=== PATIENT | male | born 1930 | race Caucasian/White ===

== ENCOUNTER → 2016-10-20 | Outpatient (CLI) | payer OTHER ==
[~2016-10-20] MED LIST: ACET-1600 PO; ACET-76 PO; ASCO100072 PO; HYDR25TA6 PO; IRON15TA3 PO; LOSA25TA5 PO; LOSA50TA6 PO; LOVA40TA2 PO; MELO15TA6 PO; MV,M1TAB PO; NAPR220C2 PO
== END | disposition home or self-care (01) ==
LOC: CFH 10:00
PROVIDERS: ATTEND Physical Medicine & Rehabilitation
DX: M48.06 Spinal stenosis, lumbar region (principal); M48.07 Spinal stenosis, lumbosacral region; M47.897 Other spondylosis, lumbosacral region; M12.88 Other specific arthropathies, not elsewhere classified, other specified site; M51.25 Other intervertebral disc displacement, thoracolumbar region; M79.604 Pain in right leg
CPT/HCPCS: 72148

== ENCOUNTER → 2017-02-05 | Outpatient (CLI) | payer OTHER ==
[~2017-02-05] MED LIST changes: +BETA15CR4 TP; +IRON PO; +MINE50OI TP; +TRAM50TA2 PO
[2017-02-05 12:10] LABS: BLOOD UREA NITROGEN 22 mg/dL (7-18)
[2017-02-05 12:13] LABS: ASPARTATE AMINO TRANSFERASE 25 U/L (15-37)
== END | disposition home or self-care (01) ==
LOC: STAR 10:33
PROVIDERS: ATTEND Neurological Surgery
DX: Z01.818 Encounter for other preprocedural examination (principal); M47.896 Other spondylosis, lumbar region; M43.16 Spondylolisthesis, lumbar region; M48.07 Spinal stenosis, lumbosacral region; I70.0 Atherosclerosis of aorta; R79.1 Abnormal coagulation profile
CPT/HCPCS: 36415; 71020; 72110; 80053; 81003; 85025; 85610; 85730; 93005

== ENCOUNTER → 2017-12-23 | Outpatient (CLI) | payer OTHER ==
[~2017-12-23] MED LIST changes: +HYDR-3240 PO; +TIZA2TAB PO
== END | disposition home or self-care (01) ==
LOC: CFH 08:56
PROVIDERS: ATTEND Registered Nurse Registered Nurse First Assistant
DX: M51.36 Other intervertebral disc degeneration, lumbar region (principal); M48.061 Spinal stenosis, lumbar region without neurogenic claudication; M41.9 Scoliosis, unspecified
CPT/HCPCS: 72110; 72148

== ENCOUNTER 2018-03-27 11:43 | Inpatient (IN) | payer OTHER ==
[~2018-03-27] VITALS: Ht 170.2 cm; Wt 78.9 kg
[~2018-03-27 11:43] MED LIST changes: -LOSA25TA5 PO; +LOSA25TA6 PO; -LOSA50TA6 PO; +LOSA50TA7 PO
[2018-03-27] MEDS ORDERED: NAPR220C2 PO (12:36)
[2018-03-27] MEDS ORDERED: ACET-1600 PO (12:36)
[2018-03-27] MEDS ORDERED: MELO15TA24 PO (12:36)
[2018-03-27 12:43] LABS: BASOPHILS # (AUTO) 0.05 x10^3/uL (0-0.1); BASOPHILS % (AUTO) 0 % (0-1); EOSINOPHILS % (AUTO) 1 % (1-7); LYMPHOCYTES # (AUTO) 0.61 x10^3/uL (1-3.4); LYMPHOCYTES % (AUTO) 5 % (22-44); MD NO; MEAN CORPUSCULAR HEMOGLOBIN 32.1 pg (27.5-34.5); MEAN CORPUSCULAR HGB CONC 33.2 g/dL (33.2-36.2); MEAN CORPUSCULAR VOLUME 96.8 fL (81-97); MEAN PLATELET VOLUME 7.8 fL (7.4-10.4); MONOCYTES # (AUTO) 0.83 x10^3/uL (0.2-0.8); MONOCYTES % (AUTO) 7 % (2-9); NEUTROPHILS # (AUTO) 10.67 x10^3/uL (1.8-6.8); NEUTROPHILS % (AUTO) 87 % (42-75); PLATELET COUNT 325 x10^3/uL (130-400); RED CELL DISTRIBUTION WIDTH 14.1 % (9.4-14.8)
[2018-03-27 12:44] LABS: MICROSCOPIC NOT IND
[2018-03-27 12:52] LABS: CULTURE INDICATED? NO
[2018-03-27 12:53] LABS: INTERNATIONAL NORMALIZED RATIO 1.09 (0.93-1.1); PROTHROMBIN TIME 11.2 Seconds (9.6-11.5)
[2018-03-27 12:57] LABS: ALANINE AMINOTRANSFERASE 18 U/L (12-78); ALBUMIN 3.6 g/dL (3.4-5.0); ANION GAP 9 mmol/L (5-15); CALCIUM 8.2 mg/dL (8.5-10.1); CHLORIDE 109 mmol/L (98-107); CREATININE 1.04 mg/dL (0.7-1.3)
[2018-03-27 13:02] LABS: ALKALINE PHOSPHATASE 43 U/L (45-117); BILIRUBIN,TOTAL 0.3 mg/dL (0.2-1.0); TOTAL PROTEIN 6.5 g/dL (6.4-8.2)
[2018-03-27 13:03] LABS: TROPONIN I < 0.015 ng/mL (0.000-0.045)
[2018-03-27] MEDS ORDERED: SODIUM CHLORIDE 0.9%, 500ML IVBOLUS ONE (13:30)
[2018-03-27] MEDS ORDERED: PANTOPRAZOLE 40 MG IV ONE (13:46)
[2018-03-27] MEDS: PANTOPRAZOLE 40 MG IV IVPush SCH ×3 (13:50→16:37)
[2018-03-27] MEDS ORDERED: BISACODYL 10 MG SUPP PR PRN (14:30)
[2018-03-27] MEDS ORDERED: morphine SULFATE 10 MG/ML, 1ML IVPush PRN (14:30)
[2018-03-27] MEDS ORDERED: HYDROcodone/APAP 5/325 TABLET PO PRN (14:30)
[2018-03-27] MEDS ORDERED: LIDODERM 5% PATCH TD PRN (14:30)
[2018-03-27] MEDS ORDERED: ENALAPRILAT 1.25 MG/ML, 2ML IVPush PRN (14:30)
[2018-03-27] MEDS ORDERED: METHOCARBAMOL 500 MG TABLET PO PRN (14:30)
[2018-03-27] MEDS ORDERED: POLYETHYLENE GLYCOL 17 GM PACKET PO PRN (14:30)
[2018-03-27] MEDS ORDERED: ONDANSETRON ODT 4 MG PO PRN (14:30)
[2018-03-27] MEDS ORDERED: DOCUSATE 100 MG CAPSULE PO PRN (14:30)
[2018-03-27] MEDS ORDERED: ONDANSETRON 2MG/ML, 2ML IVPush PRN (14:30)
[2018-03-27 15:14] VITALS: BP 118/69
[2018-03-27] MEDS: ACETAMINOPHEN 500 MG TABLET PO SCH ×2 (16:36→20:42)
[2018-03-27] MEDS: SODIUM CHLORIDE 0.9% 1,000 ML IV SCH (16:37)
[2018-03-27 19:21] VITALS: BP 130/79
[2018-03-28] MEDS: SODIUM CHLORIDE 0.9% 1,000 ML IV SCH ×2 (00:01→10:46)
[2018-03-28 01:12] VITALS: BP 126/63
[2018-03-28] MEDS: PANTOPRAZOLE 40 MG IV IVPush SCH (02:34)
[2018-03-28 07:12] LABS: BASOPHILS # (AUTO) 0.03 x10^3/uL (0-0.1); BASOPHILS % (AUTO) 0 % (0-1); EOSINOPHILS # (AUTO) 0.12 x10^3/uL (0-0.4); EOSINOPHILS % (AUTO) 2 % (1-7); LYMPHOCYTES # (AUTO) 2.37 x10^3/uL (1-3.4); LYMPHOCYTES % (AUTO) 29 % (22-44); MD NO; MEAN CORPUSCULAR HEMOGLOBIN 32.4 pg (27.5-34.5); MEAN CORPUSCULAR HGB CONC 33.7 g/dL (33.2-36.2); MEAN CORPUSCULAR VOLUME 96.2 fL (81-97); MEAN PLATELET VOLUME 7.1 fL (7.4-10.4); MONOCYTES # (AUTO) 0.73 x10^3/uL (0.2-0.8); MONOCYTES % (AUTO) 9 % (2-9); NEUTROPHILS # (AUTO) 4.94 x10^3/uL (1.8-6.8); NEUTROPHILS % (AUTO) 60 % (42-75); PLATELET COUNT 266 x10^3/uL (130-400); RED BLOOD COUNT 2.51 x10^6/uL (4.38-5.82); RED CELL DISTRIBUTION WIDTH 14.5 % (9.4-14.8)
[2018-03-28 07:21] LABS: ALANINE AMINOTRANSFERASE 19 U/L (12-78); ALBUMIN 3.3 g/dL (3.4-5.0); ANION GAP 6 mmol/L (5-15); CALCIUM 8.1 mg/dL (8.5-10.1); CHLORIDE 114 mmol/L (98-107); CREATININE 1.11 mg/dL (0.7-1.3)
[2018-03-28 07:23] LABS: ALKALINE PHOSPHATASE 37 U/L (45-117); BILIRUBIN,TOTAL 0.4 mg/dL (0.2-1.0)
[2018-03-28 07:40] VITALS: BP 144/71
[2018-03-28] MEDS ORDERED: PROPOFOL 10 MG/ML, 20ML ONE (08:50)
[2018-03-28] MEDS ORDERED: LOVASTATIN 40 MG TABLET PO SCH (09:00)
[2018-03-28] MEDS ORDERED: FERROUS SULFATE 325 MG TABLET PO SCH (09:00)
[2018-03-28] MEDS ORDERED: ASCORBIC ACID 500 MG TABLET PO SCH (09:00)
[2018-03-28] MEDS ORDERED: ACETAMINOPHEN 325 MG TABLET PO PRN (09:30)
[2018-03-28] MEDS ORDERED: ONDANSETRON ODT 8 MG PO PRN (09:30)
[2018-03-28 09:56] VITALS: BP 109/63
[2018-03-28] MEDS: ACETAMINOPHEN 500 MG TABLET PO SCH (10:46)
[2018-03-28] MEDS ORDERED: SUCRALFATE 1 GM/10 ML UDC PO SCH (11:00)
[2018-03-28 13:35] VITALS: BP 130/69
[2018-03-28] MEDS ORDERED: OMEP40CA6 PO (13:53)
[2018-03-28] MEDS ORDERED: SUCR1ORA5 PO (13:53)
[2018-03-28] MEDS ORDERED: LACT1CAP24 PO (13:53)
== END 2018-03-28 16:25 | disposition home or self-care (01) | DRG 378 ==
LOC: ED 13:37 → EDIP 13:38 → ED 13:40 → 4EST 15:03
PROVIDERS: ADMIT Hospitalist; ATTEND Hospitalist
PROC: 0DB78ZX Excision of Stomach, Pylorus, Via Natural or Artificial Opening Endoscopic, Diagnostic (ICD-10-PCS; principal; 2018-03-28 09:00)
DX: K26.4 Chronic or unspecified duodenal ulcer with hemorrhage (principal); D62 Acute posthemorrhagic anemia; D72.829 Elevated white blood cell count, unspecified; E78.00 Pure hypercholesterolemia, unspecified; G47.33 Obstructive sleep apnea (adult) (pediatric); Z96.649 Presence of unspecified artificial hip joint; G89.29 Other chronic pain; I10 Essential (primary) hypertension; I45.10 Unspecified right bundle-branch block; N19 Unspecified kidney failure; Z85.828 Personal history of other malignant neoplasm of skin
CPT/HCPCS: 36415; 71045; 80053; 81003; 83690; 83880; 84484; 85014; 85018; 85025; 85610; 85730; 88305; 93005; 99285; G0378; J2704; C9113; J7030; J7040

== ENCOUNTER → 2018-08-13 | Outpatient (CLI) | payer MEDICARE ==
[~2018-08-13] MED LIST changes: +LACT1CAP24 PO; +LOSA25TA25 PO; -LOSA25TA6 PO; +MELO15TA24 PO; +OMEP40CA6 PO; +SUCR1ORA5 PO
== END | disposition home or self-care (01) ==
LOC: CFH 13:26
PROVIDERS: ATTEND Registered Nurse
DX: I25.10 Atherosclerotic heart disease of native coronary artery without angina pectoris (principal); G47.34 Idiopathic sleep related nonobstructive alveolar hypoventilation
CPT/HCPCS: 71250

== ENCOUNTER 2018-10-15 08:55 | Emergency (ER) | payer MEDICARE, OTHER ==
[~2018-10-15] VITALS: Ht 167.6 cm; Wt 82.0 kg
[~2018-10-15 08:55] MED LIST changes: +LOSA50TA14 PO; -LOSA50TA7 PO
--- NOTE | 2018-10-15 09:29 | NUR ---
PT AMBULATORY TO ROOM 16 W/ C/O MID BACK PAIN STARTED AFTER PT HAD MGL THURSDAY. PT STATES HE AWOKE THURSDAY W/ PAIN THAT IS GETTING WORSE. DENIES HEAD INJURY/LOC. PT SITTING AT [facility]. [facility] [place].
[2018-10-15] MEDS ORDERED: HYDROcodone/APAP 5/325 TABLET ONE (09:45)
--- NOTE | 2018-10-15 09:49 | NUR ---
REPORT RECEIVED FROM KRISTIE WU. ASSUMED CARE OF PT. PT CURRENTLY IN RADIOLOGY.
--- NOTE | 2018-10-15 09:52 | NUR ---
KRISTIE RN: REPORT TO TRISHA BARAJAS.
[2018-10-15] MEDS ORDERED: HYDROcodone/APAP 5/325 TABLET PO ONE (10:00)
--- NOTE | 2018-10-15 10:48 | NUR ---
PT PROVIDED WITH IS, INSTRUCTED ON USE. PT ABLE TO RAISE PISTON TO 1500. NO NEEDS EXPRESSED AT THIS TIME.
--- NOTE | 2018-10-15 11:29 | NUR ---
REPORT TO TRISHA BARAJAS.
[2018-10-15 12:01] VITALS: BP 120/58
== END 2018-10-15 12:04 | disposition home or self-care (01) ==
LOC: ED 11:05
DX: S29.011A Strain of muscle and tendon of front wall of thorax, initial encounter (principal); W01.0XXA Fall on same level from slipping, tripping and stumbling without subsequent striking against object, initial encounter; Y93.89 Activity, other specified; Y92.89 Other specified places as the place of occurrence of the external cause; Y99.9 Unspecified external cause status
CPT/HCPCS: 99283

== ENCOUNTER → 2018-11-11 | Outpatient (CLI) | payer MEDICARE, OTHER ==
[~2018-11-11] MED LIST changes: +REGADENOSON 0.4 MG/5 ML SYRINGE ONE
== END | disposition home or self-care (01) ==
LOC: CFH 08:03
PROVIDERS: ATTEND Internal Medicine Cardiovascular Disease
DX: R06.02 Shortness of breath (principal); I10 Essential (primary) hypertension
CPT/HCPCS: 78452; 93017; A9502; J2785

== ENCOUNTER 2019-02-11 11:32 | Emergency (ER) | payer MEDICARE ==
[~2019-02-11] VITALS: Ht 170.2 cm; Wt 80.0 kg
[~2019-02-11 11:32] MED LIST changes: -REGADENOSON 0.4 MG/5 ML SYRINGE ONE
[2019-02-11] MEDS ORDERED: ASPIRIN 81 MG TABLET CHEW PO ONE (12:00)
[2019-02-11 12:06] LABS: BASOPHILS # (AUTO) 0.02 x10^3/uL (0-0.1); BASOPHILS % (AUTO) 0 % (0-1); EOSINOPHILS # (AUTO) 0.13 x10^3/uL (0-0.4); EOSINOPHILS % (AUTO) 2 % (1-7); LYMPHOCYTES # (AUTO) 0.76 x10^3/uL (1-3.4); LYMPHOCYTES % (AUTO) 13 % (22-44); MD NO; MEAN CORPUSCULAR HEMOGLOBIN 32.8 pg (27.5-34.5); MEAN CORPUSCULAR HGB CONC 32.6 g/dL (33.2-36.2); MEAN CORPUSCULAR VOLUME 100.6 fL (81-97); MEAN PLATELET VOLUME 7.1 fL (7.4-10.4); MONOCYTES # (AUTO) 0.89 x10^3/uL (0.2-0.8); MONOCYTES % (AUTO) 15 % (2-9); NEUTROPHILS # (AUTO) 4.14 x10^3/uL (1.8-6.8); NEUTROPHILS % (AUTO) 70 % (42-75); PLATELET COUNT 263 x10^3/uL (130-400); RED BLOOD COUNT 4.11 x10^6/uL (4.38-5.82); RED CELL DISTRIBUTION WIDTH 14.2 % (9.4-14.8)
[2019-02-11] MEDS ORDERED: ASPIRIN 81 MG TABLET CHEW ONE (12:07)
[2019-02-11 12:20] LABS: ALBUMIN 3.9 g/dL (3.4-5.0); ANION GAP 8 mmol/L (5-15); CALCIUM 8.9 mg/dL (8.5-10.1); CHLORIDE 112 mmol/L (98-107)
[2019-02-11 12:25] LABS: CREATININE 1.16 mg/dL (0.7-1.3); TROPONIN I < 0.015 ng/mL (0.000-0.045)
[2019-02-11] MEDS ORDERED: APIXABAN 5 MG TABLET PO ONE (13:30)
[2019-02-11] MEDS ORDERED: APIXABAN 5 MG TABLET ONE (13:33)
[2019-02-11 14:03] VITALS: BP 142/64
== END 2019-02-11 14:05 | disposition home or self-care (01) ==
LOC: ED 12:47
DX: I48.0 Paroxysmal atrial fibrillation (principal); M19.90 Unspecified osteoarthritis, unspecified site; G89.29 Other chronic pain; M54.9 Dorsalgia, unspecified; I10 Essential (primary) hypertension; E78.00 Pure hypercholesterolemia, unspecified; Z96.649 Presence of unspecified artificial hip joint
CPT/HCPCS: 36415; 71046; 80048; 82040; 83880; 84484; 85025; 93005; 99284

== ENCOUNTER 2019-03-08 11:03 | Outpatient (CLI) | payer MEDICARE | END 2019-03-08 23:59 | disposition home or self-care (01) | LOC: CFH 11:03 | PROVIDERS: ATTEND Registered Nurse | DX: R91.8 Other nonspecific abnormal finding of lung field (principal); M95.4 Acquired deformity of chest and rib; G47.34 Idiopathic sleep related nonobstructive alveolar hypoventilation; Z98.890 Other specified postprocedural states | CPT/HCPCS: 71250 ==

== ENCOUNTER 2020-03-23 10:55 | Emergency (ER) | payer MEDICARE ==
[~2020-03-23] VITALS: Ht 167.6 cm; Wt 82.0 kg
[~2020-03-23 10:55] MED LIST changes: +OMEP40CA42 PO; -OMEP40CA6 PO; -TIZA2TAB PO; +TIZA2TAB4 PO
--- NOTE | 2020-03-23 11:02 | NUR ---
89 Y/O MALE BIB AMBULANCE WITH C/O FLUTTERING FEELING IN HEART. PER PT "ABOUT 0430, I HAVE AFIB, AND IT KICKED IN FOR ABOUT 4 SECONDS. IT HAPPENED ABOUT 4 MONTHS AGO. SINCE I WOKE UP AFTER THAT, I HAVE BEEN MELQUIADES FEELING LETHARGIC AND THOUGHT I SHOULD GET IT CHECKED OUT." NADN. NO C/O CP, N/V/D, TRAUMA, SYNCOPE, SOB. PT PLACED ON CONT PULSE OX,NIBP, [employer] [place].
--- NOTE | 2020-03-23 11:05 | NUR ---
PT STATES HE TOOK 325 OF ASPIRIN TODAY. PER REPORT PT HAS PIV IN RIGHT WRIST, FSBS 109
[2020-03-23] MEDS ORDERED: CYAN100072 PO (11:10)
[2020-03-23] MEDS ORDERED: APIX2.5T PO (11:10)
[2020-03-23] MEDS ORDERED: GABA100C PO (11:10)
[2020-03-23] MEDS ORDERED: CHOL10003 PO (11:10)
--- NOTE | 2020-03-23 11:13 | NUR ---
EDMD BEDSIDE. NOW BEDSIDE.
[2020-03-23 11:53] LABS: BASOPHILS # (AUTO) 0.03 x10^3/uL (0-0.1); BASOPHILS % (AUTO) 1 % (0-1); EOSINOPHILS # (AUTO) 0.09 x10^3/uL (0-0.4); EOSINOPHILS % (AUTO) 2 % (1-7); LYMPHOCYTES # (AUTO) 0.88 x10^3/uL (1-3.4); LYMPHOCYTES % (AUTO) 15 % (22-44); MD NO; MEAN CORPUSCULAR HEMOGLOBIN 33.8 pg (27.5-34.5); MEAN CORPUSCULAR HGB CONC 32.8 g/dL (33.2-36.2); MEAN PLATELET VOLUME 7.4 fL (7.4-10.4); MONOCYTES # (AUTO) 0.58 x10^3/uL (0.2-0.8); MONOCYTES % (AUTO) 10 % (2-9); NEUTROPHILS # (AUTO) 4.29 x10^3/uL (1.8-6.8); NEUTROPHILS % (AUTO) 73 % (42-75); PLATELET COUNT 234 x10^3/uL (130-400); RED BLOOD COUNT 3.95 x10^6/uL (4.38-5.82); RED CELL DISTRIBUTION WIDTH 14.2 % (9.4-14.8)
[2020-03-23 12:07] LABS: ANION GAP 9 mmol/L (5-15); CALCIUM 9.1 mg/dL (8.5-10.1); CHLORIDE 109 mmol/L (98-107); CREATININE 1.22 mg/dL (0.7-1.3)
[2020-03-23 12:12] LABS: TROPONIN I < 0.015 ng/mL (0.000-0.045)
--- NOTE | 2020-03-23 12:13 | NUR ---
Report from Corazon. Pt resting, spouse at bedside. Pt without complaint, states feeling "good". Updated on POC.
--- NOTE | 2020-03-23 12:38 | NUR ---
Pt assisted to restroom. Ambulates without issue.
[2020-03-23 13:26] VITALS: BP 155/90
== END 2020-03-23 13:38 | disposition home or self-care (01) ==
LOC: ED 11:44
DX: R00.2 Palpitations (principal); I10 Essential (primary) hypertension; I48.91 Unspecified atrial fibrillation; I45.10 Unspecified right bundle-branch block; R07.89 Other chest pain
CPT/HCPCS: 36415; 71045; 80048; 82040; 84484; 85025; 93005; 99285

== ENCOUNTER 2020-04-11 06:20 | Emergency (ER) | payer MEDICARE ==
[~2020-04-11] VITALS: Ht 167.6 cm; Wt 82.0 kg
[~2020-04-11 06:20] MED LIST changes: +APIX2.5T PO; +CHOL10003 PO; +CYAN100072 PO; +GABA100C PO
[2020-04-11] MEDS ORDERED: METOPROLOL SUCCINATE 25 MG TAB.ER.24H PO ONE (06:30)
--- NOTE | 2020-04-11 06:36 | NUR ---
PT HAS HAD ON AND OFF PALPATIONS FOR 7 MONTHS NOW THAT COME AND GO. PT HAS HX OF A-FIB
[2020-04-11 06:52] LABS: BASOPHILS # (AUTO) 0.01 x10^3/uL (0-0.1); BASOPHILS % (AUTO) 0 % (0-1); EOSINOPHILS # (AUTO) 0.11 x10^3/uL (0-0.4); EOSINOPHILS % (AUTO) 2 % (1-7); LYMPHOCYTES # (AUTO) 1.46 x10^3/uL (1-3.4); LYMPHOCYTES % (AUTO) 26 % (22-44); MD NO; MEAN CORPUSCULAR HEMOGLOBIN 33.4 pg (27.5-34.5); MEAN CORPUSCULAR HGB CONC 32.3 g/dL (33.2-36.2); MEAN CORPUSCULAR VOLUME 103.5 fL (81-97); MEAN PLATELET VOLUME 6.9 fL (7.4-10.4); MONOCYTES # (AUTO) 0.51 x10^3/uL (0.2-0.8); MONOCYTES % (AUTO) 9 % (2-9); NEUTROPHILS # (AUTO) 3.54 x10^3/uL (1.8-6.8); NEUTROPHILS % (AUTO) 63 % (42-75); PLATELET COUNT 249 x10^3/uL (130-400); RED BLOOD COUNT 4.17 x10^6/uL (4.38-5.82); RED CELL DISTRIBUTION WIDTH 13.8 % (9.4-14.8)
--- NOTE | 2020-04-11 06:56 | NUR ---
REPORT FROM ALICIA
[2020-04-11 07:03] LABS: ALBUMIN 3.9 g/dL (3.4-5.0); ANION GAP 5 mmol/L (5-15); CALCIUM 9.5 mg/dL (8.5-10.1); CHLORIDE 110 mmol/L (98-107); CREATININE 1.41 mg/dL (0.7-1.3)
[2020-04-11 07:07] LABS: TROPONIN I < 0.015 ng/mL (0.000-0.045)
--- NOTE | 2020-04-11 07:30 | NUR ---
MEDICATED PER EMAR ORDERS, VSS, PT RESTING, CALL LIGHT IN REACH
[2020-04-11 08:43] VITALS: BP 145/72
--- NOTE | 2020-04-11 08:43 | NUR ---
Patient/Caregiver given discharge instructions and they have confirmed that they understand the instructions. Patient ambulatory with steady gait.
== END 2020-04-11 08:45 | disposition home or self-care (01) ==
LOC: ED 06:54
DX: R00.2 Palpitations (principal); I48.20 Chronic atrial fibrillation, unspecified; R07.9 Chest pain, unspecified; I10 Essential (primary) hypertension; Z96.649 Presence of unspecified artificial hip joint
CPT/HCPCS: 36415; 71045; 80048; 82040; 84484; 85025; 93005; 99285